=== PATIENT | male | born 1960 | race Caucasian/White ===

== ENCOUNTER 2024-11-19 20:20 | Emergency (ER) | payer MEDICAID ==
[~2024-11-19] VITALS: Ht 193 cm; Wt 90.4 kg
[2024-11-19 20:24] VITALS: O2SAT 99
[2024-11-19 21:33] LABS: BASOPHILS % 1.0 % (0.0-2.0); EOSINOPHILS % 2.6 % (0.0-5.0); HEMATOCRIT. 35.5 % (42.0-52.0); HEMOGLOBIN. 11.6 g/dL (14.0-18.0); LYMPHOCYTES % 12.1 % (20.0-50.0); MEAN PLATELET VOLUME 7.4 fl (7.4-10.4); MONOCYTES % 6.2 % (2.0-8.0); NEUTROPHILS % 78.1 % (40.0-76.0); PLATELET 331 x1000/uL (130-400); RED BLOOD CELL COUNT 4.31 mill/uL (4.7-6.1); RED CELL DISTRIBUTION WIDTH 15.0 % (11.6-14.6)
[2024-11-19] MEDS: ACETAMINOPHEN 325MG TABLET PO ONE (21:43)
[2024-11-19 21:45] LABS: CREATININE 1.1 mg/dL (0.6-1.3); UREA NITROGEN BLOOD 17 mg/dL (9-23)
[2024-11-19 21:46] LABS: ETHANOL BLOOD < 10 mg/dL (<10)
[2024-11-19 21:47] LABS: TROPONIN I HIGH SENSITIVITY 5 ng/L (3.0-53)
[2024-11-20] MEDS: IBUPROFEN 600MG TABLET PO ONE (00:06)
[2024-11-20 01:19] LABS: TROPONIN I HIGH SENSITIVITY 5 ng/L (3.0-53)
[2024-11-20 01:46] VITALS: BP 119/72; PULSE 68; RESP 14; TEMP 36.7; O2SAT 98
== END 2024-11-20 03:27 | disposition home or self-care (01) ==
LOC: ER 20:20
DX: R07.89 Other chest pain (principal); R06.02 Shortness of breath; I25.2 Old myocardial infarction; I10 Essential (primary) hypertension; I51.9 Heart disease, unspecified; Z98.890 Other specified postprocedural states
CPT/HCPCS: 36415; 71045; 80048; 80320; 83880; 84484; 85025; 93005; 99285; G0480